=== PATIENT | female | born 1980 | race Caucasian/White ===

== ENCOUNTER → 2016-12-04 13:06 | Outpatient (CLI) | payer OTHER ==
[2015-06-12 05:47] VITALS: BMI 33.1
[~2016-12-04 13:06] MED LIST: AMOXICILLIN875 MG PO; CETIRIZINE HCL5 MG PO; SPRINTEC1 TAB PO; TOPAMAX25 MG PO
== END | disposition home or self-care (01) ==
LOC: D.MRI 13:00
DX: M25.572 Pain in left ankle and joints of left foot (principal)